=== PATIENT | female | born 1990 | race Caucasian/White ===

== ENCOUNTER 2018-12-27 15:32 | Emergency (ER) | payer SELFPAY ==
[~2018-12-27] VITALS: Ht 162.5 cm; Wt 49.9 kg
[2018-12-27 16:40] LABS: HEMATOCRIT 37.4 % (37.0-47.0); HEMOGLOBIN 12.7 g/dl (12.0-16.0); MEAN CELL VOLUME 96.1 fl (81.0-99.0); MEAN CORPUSCULAR HGB 32.6 pg (27.0-31.0); MEAN PLATELET VOLUME 9.7 fl (9.6-12.3); PLATELET COUNT AUTOMATED 147 10*3/uL (130-400); RED BLOOD COUNT 3.89 10*6/uL (4.10-5.10); RED CELL DISTRI WIDTH 11.8 % (0-14.5); WHITE BLOOD COUNT 3.7 10*3/uL (4.8-10.8)
[2018-12-27 16:58] LABS: BILIRUBIN NEGATIVE (NEGATIVE); BLOOD 2+ (NEGATIVE); CLARITY CLEAR (CLEAR); COLOR YELLOW (YELLOW); GLUCOSE NEGATIVE (NEGATIVE); KETONE NEGATIVE (NEGATIVE); LEUKO ESTERASE NEGATIVE (NEGATIVE); NITRITE NEGATIVE (NEGATIVE); PH 6.5 (5.0-9.0); SPECIFIC GRAVITY <= 1.005 (1.005-1.030)
[2018-12-27 16:59] LABS: ALBUMIN 3.2 gm/dl (3.1-4.5); ALKALINE PHOSPHATASE 46 U/L (45-117); BUN 2 mg/dl (7-24); CHLORIDE 105 mmol/L (98-107); CREATININE 0.65 mg/dL (0.55-1.02); POTASSIUM 3.3 mmol/L (3.5-5.1); SGOT/AST 16 IU/L (3-35); SGPT/ALT 16 U/L (12-78); SODIUM 139 mmol/L (136-145); TOTAL PROTEIN 7.4 gm/dL (6.4-8.2)
[2018-12-27 17:10] LABS: BASOPHILS 1 % (0-1); PLATELET SUFFICIENCY LOW (NORMAL); TOTAL CELLS COUNTED 100 #CELLS
[2018-12-27 17:13] LABS: EPITHELIAL CELLS 51-100
[2018-12-27 17:14] LABS: BACTERIA TRACE
[2018-12-27] MEDS ORDERED: AVPAK AZITHROM250 MG PO (17:17)
[2018-12-27] MEDS ORDERED: ROBITUSSIN DM 101 OZ PO (17:17)
[2018-12-27] MEDS ORDERED: DELTASONE20 M1 PO (17:17)
[2018-12-27] MEDS ORDERED: PROVENTIL HFA6.7 GM INH (17:17)
== END 2018-12-27 19:00 | disposition home or self-care (01) ==
LOC: ED 15:32
PROVIDERS: Nurse Practitioner Family
DX: J18.9 Pneumonia, unspecified organism (principal); E87.6 Hypokalemia; Z88.1 Allergy status to other antibiotic agents

== ENCOUNTER 2020-09-25 09:16 | Emergency (ER) | payer OTHER ==
[~2020-09-25] VITALS: Ht 162.5 cm; Wt 52.2 kg
[~2020-09-25 09:16] MED LIST: AVPAK AZITHROM250 MG PO; DELTASONE20 M1 PO; PROVENTIL HFA6.7 GM INH; ROBITUSSIN DM 101 OZ PO
== END 2020-09-25 11:30 | disposition home or self-care (01) ==
LOC: ED 09:16
DX: Z04.1 Encounter for examination and observation following transport accident (principal); Z88.8 Allergy status to other drugs, medicaments and biological substances; Z79.899 Other long term (current) drug therapy; V89.2XXA Person injured in unspecified motor-vehicle accident, traffic, initial encounter; Y93.89 Activity, other specified; Y92.89 Other specified places as the place of occurrence of the external cause; Y99.8 Other external cause status

== ENCOUNTER 2021-06-08 10:38 | Emergency (ER) | payer OTHER ==
[~2021-06-08] VITALS: Ht 162.5 cm; Wt 52.6 kg
[2021-06-08 11:25] LABS: BASO % 0.1 % (0.0-1.0); EOS % 0.5 % (1.0-4.0); HEMATOCRIT 33.9 % (37.0-47.0); LYMPH # 0.6 10*3/uL (1.3-4.4); MEAN CELL VOLUME 94.4 fl (81.0-99.0); MEAN CORPUSCULAR HGB 32.9 pg (27.0-31.0); MEAN CORPUSCULAR HGB CONC 34.8 g/dl (33.0-37.0); MEAN PLATELET VOLUME 9.9 fl (9.6-12.3); MONO # 0.4 10*3/uL (0.1-1.0); MONO % 4.9 % (3.0-9.0); NEUT # 6.3 10*3/uL (2.3-7.9); NEUT % 86.2 % (47.0-73.0); PLATELET COUNT AUTOMATED 264 10*3/uL (130-400); RED BLOOD COUNT 3.59 10*6/uL (4.10-5.10); WHITE BLOOD COUNT 7.4 10*3/uL (4.8-10.8)
[2021-06-08 11:44] LABS: ALKALINE PHOSPHATASE 56 U/L (45-117); BUN 6 mg/dl (7-24); CHLORIDE 105 mmol/L (98-107); CREATININE 0.47 mg/dL (0.55-1.02); POTASSIUM 3.8 mmol/L (3.5-5.1); SGOT/AST 12 IU/L (3-35); SGPT/ALT 15 U/L (12-78); SODIUM 135 mmol/L (136-145)
[2021-06-08 13:14] LABS: BILIRUBIN Negative (Negative); BLOOD Negative (Negative); CLARITY Clear (Clear); COLOR Yellow (Yellow); GLUCOSE Negative (Negative); KETONE Trace (Negative); LEUKO ESTERASE Trace (Negative); NITRITE Negative (Negative); UROBILINOGEN 0.2 E.U./dl (0.0-1.0)
[2021-06-08 13:23] LABS: BACTERIA 3+
[2021-06-08] MEDS ORDERED: MACROBID100 M1 PO (13:50)
== END 2021-06-08 14:00 | disposition home or self-care (01) ==
LOC: ED 10:38
PROVIDERS: Physician Assistant
DX: O23.92 Unspecified genitourinary tract infection in pregnancy, second trimester (principal); Z3A.17 17 weeks gestation of pregnancy; Z88.1 Allergy status to other antibiotic agents